=== PATIENT | male | born 1940 | race Caucasian/White ===

== ENCOUNTER 2017-02-01 11:19 | Inpatient (IN) ==
[2017-02-01 12:26] LABS: Hemoglobin 13.9 g/dL (12.9-16.9); Mean Corpuscular HGB Conc 32.3 g/dL (31.6-35.5); Mean Corpuscular Hemoglobin 30.8 pg (28.0-33.3); Mean Corpuscular Volume 95.1 fL (83.0-100.0); Mean Platelet Volume 10.8 fL (9.4-12.4); Platelet Count 164 K/mcL (140-400); Red Blood Count 4.52 M/mcL (4.19-5.50); Red Cell Distribution Width 14.6 % (11.5-14.5)
[2017-02-01 12:38] LABS: Alanine Aminotransferase 58 Units/L (0-55); Albumin 3.9 g/dL (3.5-5.0); Albumin/Globulin Ratio 1.1 (1.1-2.2); Alkaline Phosphatase 67 Units/L (38-126); Aspartate Amino Transferase 74 Units/L (5-34); BUN/Creatinine Ratio 13 (6-26); Bilirubin,Total 0.8 mg/dL (0.2-1.2); Blood Urea Nitrogen 15 mg/dL (8-26); Calcium 9.8 mg/dL (8.6-10.8); Carbon Dioxide 28 mEq/L (19-29); Chloride 102 mEq/L (98-109); Globulin 3.4 g/dL (2.4-3.5); Glucose 126 mg/dL (70-99); Osmolality,Calculated 284 (280-300); Potassium 4.1 mEq/L (3.5-4.5); Sodium 136 mEq/L (136-145); Total Protein 7.3 g/dL (6.0-8.3); eGFR For African Americans > 60 (> 60); eGFR For Non-African Americans > 60 (> 60)
[2017-02-01 16:12] LABS: Bilirubin,Urine Negative (Negative); Blood,Urine Negative (Negative); Clarity,Urine Clear (Clear); Color,Urine Yellow (Yellow); Glucose,Urine (UA) Normal (Normal); Ketones,Urine Negative (Negative); Leukocyte Esterase,Urine Negative (Negative); Nitrite,Urine Negative (Negative); PH,Urine 7.5 pH Units (5.0-8.0); Protein,Urine Negative (Neg-Trace); Specific Gravity,Urine > 1.030 (1.010-1.025); Urobilinogen,Urine Normal (Normal)
--- NOTE | 2017-02-01 19:17 | Emergency Department Note ---
Disposition Clinical Impression: Dizziness Disposition: Home, Self-Care Condition: Good General Adult HPI - General Chief complaint: ED Dizziness Stated complaint: Headache/Dizziness x3 days Time Seen by Provider: 02/01/17 11:26 Source: patient, family Limitations: no limitations Nursing Notes Reviewed: Yes Vital Signs Reviewed: Yes - History of Present Illness HPI Narrative: This is a 77-year-old male who presents with concern for dizziness. His symptoms started 3 days ago. His dizziness has been intermittent. He does have known left ear dysfunction is currently being evaluated by ear nose and throat. His vertigo on arrival was not reproducible. I cannot verify a benign etiology. He was given Antivert without improvement of his dizziness. Pain Scale: 0 - Related Data Home Medications Medication Instructions Recorded Confirmed Ascorbate Calcium [Vitamin C] 1,000 mg PO QPM 02/01/17 02/01/17 Ascorbate Calcium [Vitamin C] 2,000 mg PO QAM 02/01/17 02/01/17 Aspirin 650 mg PO QPM 02/01/17 02/01/17 Azelastine 0.1% Nasal [place] 1 spray NS QA02/01/17 02/01/17 [Astelin] Biotin 5,000 mcg PO QAM 02/01/17 02/01/17 Calcium Citrate/Vitamin D3 1 each PO QPM 02/01/17 02/01/17 [Calcium Citrate with D Tablet] Calcium Citrate/Vitamin D3 2 each PO QAM 02/01/17 02/01/17 [Calcium Citrate with D Tablet] Cholecalciferol (Vitamin D3) 10,000 unit PO QAM 02/01/17 02/01/17 [Vitamin D3] Garlic 1,000 mg PO QAM 02/01/17 02/01/17 Glucosam Sul Na/Chondr Cifuentes A Na 1 each PO QPM 02/01/17 02/01/17 [Glucosamine-Chondroitin Tablet] Glucosam Sul Na/Chondr Cifuentes A Na 2 each PO QAM 02/01/17 02/01/17 [Glucosamine-Chondroitin Tablet] Loratadine [Claritin] 10 mg PO QAM 02/01/17 02/01/17 Methotrexate [Otrexup] 15 mg PO QWEEK 02/01/17 02/01/17 Metoprolol XL (24 HR) Succ [Toprol 25 mg PO QPM 02/01/17 02/01/17 XL] Multivitamin [One Daily 1 each PO QAM 02/01/17 02/01/17 Multivitamin] Nitroglycerin [Nitrostat] 0.4 mg SL Q5M PRN 02/01/17 02/01/17 [place]-3/Dha/Epa/Fish Oil [Fish Oil 1,000 mg PO QPM 02/01/17 02/01/17 1,000 mg Softgel] [place]-3/Dha/Epa/Fish Oil [Fish Oil 2,000 mg PO QAM 02/01/17 02/01/17 1,000 mg Softgel] Pantoprazole Sodium [Protonix] 40 mg PO QAM 02/01/17 02/01/17 Potassium Gluconate [Potassium] 1,200 mg PO QAM 02/01/17 02/01/17 Vitamin A 8,000 unit PO QPM 02/01/17 02/01/17 Vitamin A 16,000 unit PO QAM 02/01/17 02/01/17 Vitamin B Complex 2 each PO QAM 02/01/17 02/01/17 Vitamin E (Dl,Tocopheryl Acet) 800 unit PO BID 02/01/17 02/01/17 [Vitamin E] Zinc Sulfate [Zinc-15] 66 mg PO QPM 02/01/17 02/01/17 metFORMIN [Glucophage] 1,000 mg PO QPM 02/01/17 02/01/17 metFORMIN [Glucophage] 500 mg PO QAM 02/01/17 02/01/17 Allergies Allergy/AdvReac Type Severity Reaction Status Date / Time diphenhydramine AdvReac Anxiety Verified 11/06/15 11:51 [From Benadryl] NSAIDS (Non-Steroidal AdvReac See Verified 11/06/15 11:51 Anti-Inflamma Comments All systems ED: reviewed and negative except as stated. Past Medical History - Past Medical History Medical history: Reports: hyperlipidemia, hypertension Surgical history: Reports: orthopedic, other Psychiatric history: Reports: no psych history - Social History Smoking Status: Unknown if ever smoked Physical Exam Reflexes were checked and were normal. Strength is 5/5, sensation was normal. - General Limitations: no limitations General appearance: alert, in no apparent distress - Head Head exam: atraumatic - Eye Eye exam: Present: normal appearance - ENT ENT exam: normal exam - Neck Neck exam: Present: normal inspection, full ROM - Chest Chest inspection: Present: normal inspection - Respiratory Respiratory exam: Present: normal lung sounds bilaterally - Cardiovascular Cardiovascular exam: Present: regular rate, normal rhythm - Abdominal Exam Abdominal exam: Present: soft, Non-Tender - Male exam: Present: normal inspection - Expanded Lower Extremity Exam Neurovascular/Tendon exam: Present: normal capillary refill. Absent: pulse deficit Gait: observed and normal, not tested/not observed - Back Exam Back exam: Present: normal inspection, full ROM - Neurological Exam Neurological exam: Present: alert, oriented X3, CN II-XII intact - Psychiatric Psychiatric exam: Present: normal affect - Skin Skin exam: Present: warm, dry Course Vital Signs Temperature 97.9 F 02/01/17 11:21 Pulse Rate 67 02/01/17 11:21 Respiratory Rate 18 02/01/17 11:21 Blood Pressure 188/80 02/01/17 11:21 O2 Sat by Pulse Oximetry 98 02/01/17 11:21 Temperature 97.9 F 02/01/17 11:21 Pulse Rate 53 02/01/17 16:23 Respiratory Rate 18 02/01/17 19:08 Blood Pressure 171/82 02/01/17 19:08 O2 Sat by Pulse Oximetry 97 02/01/17 16:23 Oxygen Delivery Oxygen Delivery Room Air Medical Decision Making - [facility] Narrative Medical decision making narrative: A CT scan of his head and neck shows that there is a saccular aneurysm in the car did artery. It is small in nature. I discussed the case with Dr. Boyle the on-call vascular surgeon. He will plan to evaluate the patient as an inpatient. He will also need to be admitted for posterior circulation infarct rule out. He should be given an aspirin. He should be admitted to the hospital for further evaluation. EKG shows no acute findings. There are no identified metabolic derangements. The patient will be admitted in stable condition. - Medical Records Medical records reviewed: Yes I reviewed the patient's medical records. - Lab Data Lab results reviewed: Yes I reviewed the patient's lab results. Result diagrams: 02/01/17 12:12 02/01/17 12:12 Lab Results 02/01/17 02/01/17 02/01/17 Range/Units 12:12 12:12 12:13 WBC 5.3 (4.3-11.1) K/mcL RBC 4.52 (4.19-5.50) M/mcL Hgb 13.9 (12.9-16.9) g/dL Hct 43.0 (37.5-50.1) % MCV 95.1 (83.0-100.0) fL MCH 30.8 (28.0-33.3) pg MCHC 32.3 (31.6-35.5) g/dL RDW 14.6 H (11.5-14.5) % Plt Count 164 (140-400) K/mcL MPV 10.8 (9.4-12.4) fL ESR (0-10) mm/hr Sodium 136 (136-145) mEq/L Potassium 4.1 (3.5-4.5) mEq/L Chloride 102 (98-109) mEq/L Carbon Dioxide 28 (19-29) mEq/L BUN 15 (8-26) mg/dL Creatinine 1.12 (0.72-1.25) mg/dL Est GFR ( Amer) > 60 (> 60) Est GFR (Non-Af Amer) > 60 (> 60) BUN/Creatinine Ratio 13 (6-26) Glucose 126 H (70-99) mg/dL Calculated Osmolality 284 (280-300) Calcium 9.8 (8.6-10.8) mg/dL Total Bilirubin 0.8 (0.2-1.2) mg/dL AST 74 H (5-34) Units/L ALT 58 H (0-55) Units/L Alkaline Phosphatase 67 (38-126) Units/L Troponin I 0.02 (0-0.03) ng/mL Serum Total Protein 7.3 (6.0-8.3) g/dL Albumin 3.9 (3.5-5.0) g/dL Globulin 3.4 (2.4-3.5) g/dL Albumin/Globulin Ratio 1.1 (1.1-2.2) Urine Color (Yellow) Urine Clarity (Clear) Urine pH (5.0-8.0) pH Units Ur Specific [place] (1.010-1.025) Urine Protein (Neg-Trace) mg/dL Urine Glucose (UA) (Normal) mg/dL Urine Ketones (Negative) mg/dL Urine Blood (Negative) Urine Nitrite (Negative) Urine Bilirubin (Negative) Urine Urobilinogen (Normal) mg/dL Ur Leukocyte Esterase (Negative) Ur Culture Indicated? (NO) 02/01/17 02/01/17 Range/Units 12:14 15:59 WBC (4.3-11.1) K/mcL RBC (4.19-5.50) M/mcL Hgb (12.9-16.9) g/dL Hct (37.5-50.1) % MCV (83.0-100.0) fL MCH (28.0-33.3) pg MCHC (31.6-35.5) g/dL RDW (11.5-14.5) % Plt Count (140-400) K/mcL MPV (9.4-12.4) fL ESR 17 H (0-10) mm/hr Sodium (136-145) mEq/L Potassium (3.5-4.5) mEq/L Chloride (98-109) mEq/L Carbon Dioxide (19-29) mEq/L BUN (8-26) mg/dL Creatinine (0.72-1.25) mg/dL Est GFR ( Amer) (> 60) Est GFR (Non-Af Amer) (> 60) BUN/Creatinine Ratio (6-26) Glucose (70-99) mg/dL Calculated Osmolality (280-300) Calcium (8.6-10.8) mg/dL Total Bilirubin (0.2-1.2) mg/dL AST (5-34) Units/L ALT (0-55) Units/L Alkaline Phosphatase (38-126) Units/L Troponin I (0-0.03) ng/mL Serum Total Protein (6.0-8.3) g/dL Albumin (3.5-5.0) g/dL Globulin (2.4-3.5) g/dL Albumin/Globulin Ratio (1.1-2.2) Urine Color Yellow (Yellow) Urine Clarity Clear (Clear) Urine pH 7.5 (5.0-8.0) pH Units Ur Specific [place] > 1.030 H (1.010-1.025) Urine Protein Negative (Neg-Trace) mg/dL Urine Glucose (UA) Normal (Normal) mg/dL Urine Ketones Negative (Negative) mg/dL Urine Blood Negative (Negative) Urine Nitrite Negative (Negative) Urine Bilirubin Negative (Negative) Urine Urobilinogen Normal (Normal) mg/dL Ur Leukocyte Esterase Negative (Negative) Ur Culture Indicated? NO (NO)
[2017-02-01] MEDS ORDERED: Acetaminophen 325 MG TABLET PO PRN (19:36)
[2017-02-01] MEDS ORDERED: MOM Conc 10 ML UD.LIQ PO PRN (19:36)
[2017-02-01] MEDS ORDERED: Naloxone 0.4 MG/ML INJ IVP PRN (19:36)
[2017-02-01] MEDS ORDERED: *HR* HYDROcodone/Acet 5/325 mg TABLET PO PRN (19:36)
[2017-02-01] MEDS ORDERED: Mag Hydrox/Al Hydrox/Simeth 30 ML UDC PO PRN (19:36)
[2017-02-01] MEDS ORDERED: Pantoprazole 40 MG VIAL IVP SCH (19:45)
[2017-02-01] MEDS ORDERED: 0.9 % Sodium Chloride 1,000 ML IVC SCH (19:45)
--- NOTE | 2017-02-01 19:59 | Internal Med History&Physical ---
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 CTA of the head and neck is already done an echocardiogram has been done not too long ago and it showed an ejection fraction of 55% with the LV systolic and diastolic dysfunction. It was followed by perfusion stress test which showed inferior basal fixed defect. Based on these findings patient is a candidate of being on low-dose aspirin and Lopressor. (6) Cerebellar stroke, acute Current visit: Yes Status: Acute MRI showed left cerebellar stroke. CTA showed left carotid 3 mm saccular aneurysm. Patient has history of A. fib in the past but now he is in sinus rhythm. He is currently on Plavix and aspirin. Echocardiogram ordered but if necessary LUIS will be planned. An other possibility is to arrange a Holter monitor to see if he gets proximal itchy fibrillation. Internal Medicine - H&P: HPI Chief complaint: Headache and dizziness for 3 days Admitted From: Emergency Dept Plans for Post Hospital Care: Home History of present illness: Mr. Marquez is a 77 year old male who has chronic vertigo and dizziness problem. Patient has past medical history significant for diabetes hypertension dyslipidemia and coronary artery disease with PCI as per previous record. He has been experiencing intense postural dizziness for last 3 days and therefore he decided to come to ER. 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 ER physician consulted Dr. Boyle who has recommended to admit patient as inpatient for further evaluation while he will be consulted. MRI of the brain showed left cerebellar acute stroke/ischemia. We consulted Dr. Nuno and he is recommended to keep patient on aspirin and Plavix and do a fresh echo. Patient indicated that he had atrial fibrillation in the past but ever since he is on metoprolol that has resolved. Apparently patient had detailed workup And evaluation for vertigo as outpatient. In the fall of 2015 he had MRI of the brain and later echocardiogram of his heart. Except for left-sided mastoiditis MRI of the brain was unremarkable. Echocardiogram showed ejection fraction of 55% with surprisingly LV systolic dysfunction as well as moderate LV diastolic dysfunction without any significant valvular abnormality. Nuclear stress test was also done not too long ago which showed an estimated EF of 47% with a fixed inferobasal perfusion defect. He has also been evaluated by ENT for chronic vertigo. An incidental finding of multiple thyroid nodules was noted on CT head and neck. I checked previous record and he had thyroid ultrasound and biopsy as outpatient by his family doctor. It was noted that patient is on methotrexate but does not take folic acid though he does take multiple vitamin. Deficiency of folic acid can cause peripheral neuropathy. Patient is planned to be admitted for an observation for his symptoms. While he will remain on telemetry I will check a series of cardiac enzymes though likelihood of ischemic etiology is less but nevertheless he has history of coronary artery disease with PCI in the past as per cardiology records. I will also order fasting lipid profile besides CBC CMP to be repeated in the morning. As noted above vascular consult neurology consult has been requested. Patient 's orthostatic blood pressure will be checked by nursing. Plan discussed in detail with patient and his available family, their questions were answered and they showed good understanding integument with our plan. Past Med Surg Social Fam HX - Past Medical History Medical history: hyperlipidemia, hypertension Psychiatric history: no psych history - Past Surgical History Surgical History: orthopedic, other - Social History Smoking Status: Unknown if ever smoked Internal Medicine - H&P: Meds Ascorbate Calcium [Vitamin C] 1,000 mg PO QPM 02/01/17 [History] Ascorbate Calcium [Vitamin C] 2,000 mg PO QAM 02/01/17 [History] Aspirin 650 mg PO QPM 02/01/17 [History] Azelastine 0.1% Nasal [place] [Astelin] 1 spray NS QAM 02/01/17 [History] Biotin 5,000 mcg PO QAM 02/01/17 [History] Calcium Citrate/Vitamin D3 [Calcium Citrate with D Tablet] 1 each PO QPM [History] Calcium Citrate/Vitamin D3 [Calcium Citrate with D Tablet] 2 each PO QAM [History] Cholecalciferol (Vitamin D3) [Vitamin D3] 10,000 unit PO QAM 02/01/17 [History] Garlic 1,000 mg PO QAM 02/01/17 [History] Glucosam Sul Na/Chondr Cifuentes A Na [Glucosamine-Chondroitin Tablet] 1 each PO QPM [History] Glucosam Sul Na/Chondr [place] A Na [Glucosamine-Chondroitin Tablet] 2 each PO QAM [History] Loratadine [Claritin] 10 mg PO QAM 02/01/17 [History] Methotrexate [Otrexup] 15 mg PO QWEEK 02/01/17 [History] Metoprolol XL (24 HR) Succ [Toprol XL] 25 mg PO QPM 02/01/17 [History] Multivitamin [One Daily Multivitamin] 1 each PO QAM 02/01/17 [History] Nitroglycerin [Nitrostat] 0.4 mg SL Q5M PRN 02/01/17 [History] [place]-3/Dha/Epa/Fish Oil [Fish Oil 1,000 mg Softgel] 1,000 mg PO QPM 02/01/17 [ History] [place]-3/Dha/Epa/Fish Oil [Fish Oil 1,000 mg Softgel] 2,000 mg PO QAM 02/01/17 [ History] Pantoprazole Sodium [Protonix] 40 mg PO QAM 02/01/17 [History] Potassium Gluconate [Potassium] 1,200 mg PO QAM 02/01/17 [History] Vitamin A 8,000 unit PO QPM 02/01/17 [History] Vitamin A 16,000 unit PO QAM 02/01/17 [History] Vitamin B Complex 2 each PO QAM 02/01/17 [History] Vitamin E (Dl,Tocopheryl Acet) [Vitamin E] 800 unit PO BID 02/01/17 [History] Zinc Sulfate [Zinc-15] 66 mg PO QPM 02/01/17 [History] metFORMIN [Glucophage] 1,000 mg PO QPM 02/01/17 [History] metFORMIN [Glucophage] 500 mg PO QAM 02/01/17 [History] Allergies diphenhydramine [From Benadryl] Adverse Reaction (Verified 11/06/15 11:51) Anxiety NSAIDS (Non-Steroidal Anti-Inflamma Adverse Reaction (Verified 11/06/15 11:51) See Comments All Systems PM: A 10-system review of systems was performed and is negative for pertinent findings except as documented above in the HPI. - Constitutional Constitutional: no chills, no fever(s), no night sweats - EENT Eyes: no change in vision, no discharge, no pain, no photophobia Ears: no ear discharge, no ear pain, no tinnitus Nose, mouth and throat: no dysphagia, no nasal discharge, no neck pain, no sore throat - Cardiovascular Cardiovascular ROS IM: no chest pain, no diaphoresis, no dyspnea, no lightheadedness, no palpitations, no syncope - Respiratory Respiratory: no cough, no dyspnea, no wheezing, no excessive phlegm production - Gastrointestinal Gastrointestinal: no abdominal pain, no diarrhea, no hematemesis, no hematochezia, no melena, no nausea, no vomiting - Musculoskeletal Musculoskeletal ROS IM: no numbness, no tingling - Integumentary Integumentary IM: no rash, no unusual bruising - Neurological Neurological ROS: no confusion, no convulsions, no focal weakness, no numbness, no tingling, no tremor(s) - Hematologic/Lymphatic Hematologic/Lymphatic: no easy bruising - Constitutional Vitals: Temp Pulse Resp BP Pulse Ox 97.9 F 53 18 171/82 97 02/01/17 11:21 02/01/17 16:23 02/01/17 19:08 02/01/17 19:08 02/01/17 16:23 - Head Head exam: Present: atraumatic, normocephalic - Eye Eye exam: Present: PERRL, conjuntiva pink, sclera anicteric Pupils: Present: PERRL - Neck Neck exam general surgery: Present: supple, trachea midline. Absent: lymphadenopathy - Respiratory Respiratory exam: Present: CTAB. Absent: accessory muscle use, rales, rhonchi, wheezes - Cardiovascular Cardiovascular exam: Present: RRR, +S1, +S2. Absent: diastolic murmur, gallop, rubs, systolic murmur - GI/Abdominal GI/Abdominal exam: Present: normal bowel sounds, soft, no peritoneal signs. Absent: distended, tenderness - Extremities Exam Extremities exam: Present: warm, radial pulses palpable and symetrical. Absent : calf tenderness, cyanotic, pedal edema - Neurological Exam Neurological exam: Present: CN II-XII intact, oriented X3, no focal deficits. Absent: pronater drift, facial droop, speech deficit Additional comments: Detail neurological examination performed. No distal motor weakness noted DTRs symmetrical plantars downward bilaterally. Romberg's negative. No dizziness or ataxia noted no pronator drift noted nystagmus noticed - Skin Skin exam: Present: dry, intact Internal Med - H&P Results - Labs CBC & Chem 7: 02/01/17 12:12 02/01/17 12:12
[2017-02-01] MEDS ORDERED: Nitroglycerin 0.4 MG TAB.SUBL SL PRN (20:44)
[2017-02-01] MEDS ORDERED: *HR* Methotrexate 2.5 MG TABLET PO SCH (20:45)
[2017-02-01] MEDS ORDERED: *HR* Dextrose 50 % in Water (Syg) 50 ML SYRINGE IVP PRN (20:53)
[2017-02-01] MEDS ORDERED: Dextrose Gel 15 GM PO PRN ×2 (20:53)
[2017-02-01] MEDS ORDERED: D5% in Water 1,000 ML IVC PRN (20:53)
[2017-02-01] MEDS: Ondansetron 4 MG/2 ML VIAL IVP SCH (21:09)
[2017-02-01] MEDS: Folic Acid 1 MG TABLET PO SCH (21:10)
[2017-02-01] MEDS: Insulin LISPRO 300 UNITS/3 ML VIAL SQ SCH ×2 (22:01→22:02)
[2017-02-02 02:53] LABS: Alanine Aminotransferase 64 Units/L (0-55); Albumin 3.5 g/dL (3.5-5.0); Albumin/Globulin Ratio 1.2 (1.1-2.2); Alkaline Phosphatase 61 Units/L (38-126); Aspartate Amino Transferase 77 Units/L (5-34); BUN/Creatinine Ratio 12 (6-26); Bilirubin,Total 0.8 mg/dL (0.2-1.2); Blood Urea Nitrogen 13 mg/dL (8-26); Carbon Dioxide 26 mEq/L (19-29); Chloride 104 mEq/L (98-109); Chol/HDL Ratio 4.7 (0-4.9); Glucose 141 mg/dL (70-99); Osmolality,Calculated 288 (280-300); Potassium 3.7 mEq/L (3.5-4.5); Sodium 138 mEq/L (136-145); Total Protein 6.5 g/dL (6.0-8.3); eGFR For African Americans > 60 (> 60); eGFR For Non-African Americans > 60 (> 60)
[2017-02-02 02:54] LABS: Basophils % 0.5 %; Eosinophils # 0.2 K/mcL (0.0-0.6); Eosinophils % 3.1 %; Hematocrit 42.3 % (37.5-50.1); Hemoglobin 13.8 g/dL (12.9-16.9); Immature Granulocytes % 0.2 % (0-4); Lymphocytes % 36.4 %; Mean Corpuscular HGB Conc 32.6 g/dL (31.6-35.5); Mean Corpuscular Hemoglobin 31.2 pg (28.0-33.3); Mean Corpuscular Volume 95.5 fL (83.0-100.0); Monocytes # 0.6 K/mcL (0.0-1.3); Monocytes % 11.2 %; Neutrophils # 2.7 K/mcL (1.6-8.9); Platelet Count 150 K/mcL (140-400); Red Blood Count 4.43 M/mcL (4.19-5.50); Red Cell Distribution Width 14.8 % (11.5-14.5); Segmented Neutrophils % 48.6 %
[2017-02-02 03:15] LABS: Thyroid Stimulating Hormone 4.705 mcIU/mL (0.350-4.840)
[2017-02-02] MEDS: Ondansetron 4 MG/2 ML VIAL IVP SCH ×2 (03:31→04:57)
[2017-02-02] MEDS ORDERED: *HR* Enoxaparin 40 MG/0.4 ML SYRINGE SQ SCH (06:00)
--- NOTE | 2017-02-02 08:20 | Vascular/Endovasc Consult Note ---
Date of Encounter: 02/02/17 Time of Encounter: 07:00 Assessment and Plan (1) Saccular aneurysm Current Visit: Yes Status: Acute The proximal left internal carotid artery has a small 3 mm saccular aneurysm. This can be seen on at least one view in the carotid duplex evaluation. I would recommend anticoagulation with aspirin and Plavix and follow up carotid duplex in 6 weeks with follow-up in the office. If the aneurysm is still present resection may be indicated - History of Present Illness Consult date: 02/02/17 Consult reason: Abnormal CTA left internal carotid Chief complaint: Vertigo History of present illness: Mr. Marquez is a 77 year old male Who presented with a 3 day history of dizziness and vertigo. The patient underwent a CAT scan of the head was essentially negative however the CTA of the neck demonstrated a 3 mm saccular aneurysm of the proximal internal carotid artery on the left side. A follow-up duplex of the neck was evaluated and I personally reviewed the duplex evaluation. I believe that I can see flow in the saccular aneurysm on at least one image. This is a very small defect. It is noted that the MRI of the brain demonstrated cerebellar infarcts that appear to be acute in the PICA distribution. In the clinical setting of acute stroke anticoagulation with aspirin and Plavix is a reasonable approach. Further evaluation with follow-up carotid duplex is indicated. The saccular aneurysm main need to be resected and/or repaired in the future. Past Med Surg Social Fam HX - Past Medical History Medical history: hyperlipidemia, hypertension Psychiatric history: no psych history - Past Surgical History Surgical History: orthopedic, other - Social History Smoking Status: Unknown if ever smoked Smokeless Tobacco Status: Yes Alcohol use: none Drug use: none Medications and Allergies Ascorbate Calcium [Vitamin C] 1,000 mg PO QPM 02/01/17 [History] Ascorbate Calcium [Vitamin C] 2,000 mg PO QAM 02/01/17 [History] Aspirin 650 mg PO QPM 02/01/17 [History] Azelastine 0.1% Nasal [place] [Astelin] 1 spray NS QAM 02/01/17 [History] Biotin 5,000 mcg PO QAM 02/01/17 [History] Calcium Citrate/Vitamin D3 [Calcium Citrate with D Tablet] 1 each PO QPM [History] Calcium Citrate/Vitamin D3 [Calcium Citrate with D Tablet] 2 each PO QAM [History] Cholecalciferol (Vitamin D3) [Vitamin D3] 10,000 unit PO QAM 02/01/17 [History] Garlic 1,000 mg PO QAM 02/01/17 [History] Glucosam Sul Na/Chondr Cifuentes A Na [Glucosamine-Chondroitin Tablet] 1 each PO QPM [History] Glucos[place] Sul Na/Chondr [place] A Na [Glucosamine-Chondroitin Tablet] 2 each PO QAM [History] Loratadine [Claritin] 10 mg PO QAM 02/01/17 [History] Methotrexate [Otrexup] 15 mg PO QWEEK 02/01/17 [History] Metoprolol XL (24 HR) Succ [Toprol XL] 25 mg PO QPM 02/01/17 [History] Multivitamin [One Daily Multivitamin] 1 each PO QAM 02/01/17 [History] Nitroglycerin [Nitrostat] 0.4 mg SL Q5M PRN 02/01/17 [History] [place]-3/Dha/Epa/Fish Oil [Fish Oil 1,000 mg Softgel] 1,000 mg PO QPM 02/01/17 [ History] [place]-3/Dha/Epa/Fish Oil [Fish Oil 1,000 mg Softgel] 2,000 mg PO QAM 02/01/17 [ History] Pantoprazole Sodium [Protonix] 40 mg PO QAM 02/01/17 [History] Potassium Gluconate [Potassium] 1,200 mg PO QAM 02/01/17 [History] Vitamin A 8,000 unit PO QPM 02/01/17 [History] Vitamin A 16,000 unit PO QAM 02/01/17 [History] Vitamin B Complex 2 each PO QAM 02/01/17 [History] Vitamin E (Dl,Tocopheryl Acet) [Vitamin E] 800 unit PO BID 02/01/17 [History] Zinc Sulfate [Zinc-15] 66 mg PO QPM 02/01/17 [History] metFORMIN [Glucophage] 1,000 mg PO QPM 02/01/17 [History] metFORMIN [Glucophage] 500 mg PO QAM 02/01/17 [History] Allergies diphenhydramine [From Benadryl] Adverse Reaction (Verified 11/06/15 11:51) Anxiety NSAIDS (Non-Steroidal Anti-Inflamma Adverse Reaction (Verified 11/06/15 11:51) See Comments All Systems Review: A 10-system review of systems was performed and is negative for pertinent findings except as documented above in the HPI. Exam Vital Signs, Last 4 Hours Temp Pulse Resp BP Pulse Ox 02/02/17 06:31 98.7 F 68 18 171/83 94 02/02/17 05:12 97.3 F L 58 161/78 02/02/17 04:37 97.3 F L 58 16 161/78 96 General: Present: No Apparent Distress HEENT: Present: Trachea midline, Pupils equal Neck: Present: Other (No carotid bruits noted) Cardiac: Present: Reg Rate and Rhythm, Normal S1 and S2, No Murmur Lungs: Present: Normal Breath Sounds, No Wheeze, Rales, Rhonchi Neuro: Present: Alert and responsive, No focal deficits noted Abdomen: Present: Soft, Non-tender Vascular: Present: Normal capillary refill, Pulse, normal Consult Discharge Plan - Plan Referrals: Josh Randolph DO [Primary Care Provider] -
[2017-02-02] MEDS ORDERED: POTASSIUM GLUCONATE PO SCH (09:00)
[2017-02-02] MEDS ORDERED: VITAMIN A PO SCH (09:00)
[2017-02-02] MEDS ORDERED: CHONDR SU A NA PO SCH ×2 (09:00→18:00)
[2017-02-02] MEDS ORDERED: [UNRECOGNIZED DRUG - OTHER] PO SCH (09:00)
[2017-02-02] MEDS ORDERED: *HR* Metformin 500 MG TABLET PO SCH ×2 (09:00→18:00)
[2017-02-02] MEDS ORDERED: (Biotin [Biotin] 5,000 MCG) PO SCH (09:00)
[2017-02-02] MEDS ORDERED: CALCIUM CITRATE PO SCH (09:00)
[2017-02-02] MEDS ORDERED: Azelastine 0.1% Nasal Spray 30 ML BOTTLE NS SCH (09:00)
[2017-02-02] MEDS ORDERED: VITAMIN D3 PO SCH (09:00)
[2017-02-02] MEDS ORDERED: [UNRECOGNIZED DRUG - OTHER] PO SCH ×2 (09:00→18:00)
[2017-02-02] MEDS ORDERED: (Garlic [Garlic] 1,000 MG) PO SCH (09:00)
[2017-02-02] MEDS ORDERED: Ondansetron 4 MG/2 ML VIAL IVP PRN (09:19)
[2017-02-02] MEDS: Loratadine 10 MG TABLET PO SCH (09:53)
[2017-02-02] MEDS: Multivit/Ca/Min/Fe/FA 1 TAB TABLET PO SCH (09:53)
[2017-02-02] MEDS: Folic Acid 1 MG TABLET PO SCH (09:54)
[2017-02-02] MEDS: Cholecalciferol (D-3) 1,000 UNIT TABLET PO SCH (09:54)
[2017-02-02] MEDS: Aspirin Enteric Coated 81 MG Tablet PO SCH (09:54)
[2017-02-02] MEDS: Vitamin B Complex/Vit C/Vit E 1 EACH TABLET PO SCH (09:54)
[2017-02-02] MEDS: Ascorbic Acid 500 MG TABLET PO SCH (09:54)
[2017-02-02] MEDS: Insulin LISPRO 300 UNITS/3 ML VIAL SQ SCH ×4 (09:55→22:06)
--- NOTE | 2017-02-02 12:44 | Neurology - Consult Note ---
Date of Encounter: 02/02/17 Time of Encounter: 12:39 Assessment and Plan (1) Cerebellar stroke, acute Current Visit: Yes Status: Acute Involving the left cerebellar hermisphere, could be embolic or thromboembolic but CTA of head did not identify any evidence of vertebral basilar artery stenosis or occlusion. He does have history of palpitation in the past and history of irregular hearbeat but no definitive history of atrial fibrillation. next step would be to look for source of emboli therefore i would recommend LUIS for further evaluation. If LUIS returns negative he would also benefit from lands resource manager rhythm monitoring, such as loop recording. Continue Aspirin 81mg daily and plavix 75mg daily. Continue statin therapy. PT/OT. (2) Cerebral aneurysm without rupture Current Visit: Yes Status: Acute incidental finding of left ICA 3mm saccular aneurysm, currently asymptomatic. Patient is to follow up with vascular surgery Dr. Dinero. Appreciate consultation History of Present Illness Chief complaint: Dizziness for 3 days HPI: Mr. Marquez is a 77 year old male with PMH significant for HTN and hyperlipidemia , history of palpitation who developed acute onset of dizziness for three days before he went to ER for further evaluation. no significant nausea or vomiting, no hearing difficulty or tinnitus. Dizziness not very severe but fluctuate in intensity. MRI of brain showed acute cerebellar infarct at the left hemisphere in the PICA territory. CTA of neck and head showed 3mm left ICA saccular aneurysm, no evidence of vertebral or basilar artery stenosis. Patient was taking Aspirin 325mg daily. now added plavix 75mg daily and continued him on Aspirin 81mg daily. Patient is currently asymptomatic. Past Med Surg Social Fam HX - Past Medical History Medical history: hyperlipidemia, hypertension Psychiatric history: no psych history - Past Surgical History Surgical History: orthopedic, other - Social History Smoking Status: Unknown if ever smoked Smokeless Tobacco Status: Yes Alcohol use: none Drug use: none Medications and Allergies Ascorbate Calcium [Vitamin C] 1,000 mg PO QPM 02/01/17 [History] Ascorbate Calcium [Vitamin C] 2,000 mg PO QAM 02/01/17 [History] Aspirin 650 mg PO QPM 02/01/17 [History] Azelastine 0.1% Nasal [place] [Astelin] 1 spray NS QAM 02/01/17 [History] Biotin 5,000 mcg PO QAM 02/01/17 [History] Calcium Citrate/Vitamin D3 [Calcium Citrate with D Tablet] 1 each PO QPM [History] Calcium Citrate/Vitamin D3 [Calcium Citrate with D Tablet] 2 each PO QAM [History] Cholecalciferol (Vitamin D3) [Vitamin D3] 10,000 unit PO QAM 02/01/17 [History] Garlic 1,000 mg PO QAM 02/01/17 [History] Glucosam Sul Na/Chondr Cifuentes A Na [Glucosamine-Chondroitin Tablet] 1 each PO QPM [History] Glucosam Sul Na/Chondr [place] A Na [Glucosamine-Chondroitin Tablet] 2 each PO QAM [History] Loratadine [Claritin] 10 mg PO QAM 02/01/17 [History] Methotrexate [Otrexup] 15 mg PO QWEEK 02/01/17 [History] Metoprolol XL (24 HR) Succ [Toprol XL] 25 mg PO QPM 02/01/17 [History] Multivitamin [One Daily Multivitamin] 1 each PO QAM 02/01/17 [History] Nitroglycerin [Nitrostat] 0.4 mg SL Q5M PRN 02/01/17 [History] [place]-3/Dha/Epa/Fish Oil [Fish Oil 1,000 mg Softgel] 1,000 mg PO QPM 02/01/17 [ History] [place]-3/Dha/Epa/Fish Oil [Fish Oil 1,000 mg Softgel] 2,000 mg PO QAM 02/01/17 [ History] Pantoprazole Sodium [Protonix] 40 mg PO QAM 02/01/17 [History] Potassium Gluconate [Potassium] 1,200 mg PO QAM 02/01/17 [History] Vitamin A 8,000 unit PO QPM 02/01/17 [History] Vitamin A 16,000 unit PO QAM 02/01/17 [History] Vitamin B Complex 2 each PO QAM 02/01/17 [History] Vitamin E (Dl,Tocopheryl Acet) [Vitamin E] 800 unit PO BID 02/01/17 [History] Zinc Sulfate [Zinc-15] 66 mg PO QPM 02/01/17 [History] metFORMIN [Glucophage] 1,000 mg PO QPM 02/01/17 [History] metFORMIN [Glucophage] 500 mg PO QAM 02/01/17 [History] Allergies diphenhydramine [From Benadryl] Adverse Reaction (Verified 11/06/15 11:51) Anxiety NSAIDS (Non-Steroidal Anti-Inflamma Adverse Reaction (Verified 11/06/15 11:51) See Comments All Systems: A 10-system review of systems was performed and is negative for pertinent findings except as documented above in the HPI. Physical Examination - Vital Signs Vital Signs: Initial Vital Signs Temp Pulse Resp BP Pulse Ox 97.9 F 67 18 188/80 98 02/01/17 11:21 02/01/17 11:21 02/01/17 11:21 02/01/17 11:21 02/01/17 11:21 - Constitutional General appearance: comfortable - Neurologic Detailed motor examination: full strength in all major muscle groups Motor examination - right side: 5/5: deltoids, biceps, triceps, wrist flexion, wrist extension, booth manager, hip flexors, tibialis Anterior, quadriceps, toe extension (EHL), plantarflexion Motor examination - left side: 5/5: deltoids, biceps, triceps, wrist flexion, wrist extension, hip flexors, booth manager, quadriceps, tibialis Anterior, toe extension (EHL), plantarflexion Detailed sensory examination: intact Posture: other (None) Reflex and gait examination: intact Reflexes: Biceps: 2+, Triceps: 2+, Brachioradialis: 2+, Patella: 2+, Achilles: 2 + Mental Status Examination: awake, alert, oriented to person, oriented to place, oriented to time, follows commands appropriately, answers questions appropriately, no agnosia, no aphasia, no aproxia Cranial nerve examination: PERRL, EOMI, visual kathleen intact, corneal reflexes brisk symmetrically, sensory to face intact, mastication intact, no facial asymmetry is present, no dysarthria, hearing is intact symmetrically, soft palate elevates bilaterally upon phonation, gag reflex intact, flexes SCM and trapezius muscles symmetrically with full power, tongue protrudes midline, no atrophy or facial fasiculations present Cerebellar examination: no dysmetria, performs finger to nose and heel to kingsley symmetrically without ataxia, no gait ataxia, no truncal ataxia, no difficulty with rapid alternating movements Results - Laboratory Findings CBC and BMP: 02/02/17 01:55 02/02/17 01:55 Abnormal lab findings: Abnormal lab results RDW 14.8 % (11.5-14.5) H 02/02/17 01:55 ESR 17 mm/hr (0-10) H 02/01/17 12:14 Glucose 141 mg/dL (70-99) H 02/02/17 01:55 AST 77 Units/L (5-34) H 02/02/17 01:55 ALT 64 Units/L (0-55) H 02/02/17 01:55 Triglycerides 200 mg/dL (< 150) H 02/02/17 01:55 VLDL Cholesterol, Calc 40 mg/dL (< 31) H 02/02/17 01:55 HDL Cholesterol 36 mg/dL (40-59) L 02/02/17 01:55 Ur Specific [place] > 1.030 (1.010-1.025) H 02/01/17 15:59 Consult Discharge Plan - Plan Referrals: Josh Randolph DO [Primary Care Provider] - 02/08/17 2:00 pm
--- NOTE | 2017-02-02 15:42 | Internal Med Progress Note ---
Date of Encounter: 02/02/17 Time of Encounter: 14:30 - Assessment and plan (1) CVA (cerebral vascular accident) Current Visit: Yes Status: Acute Assessment and plan: Patient presents with acute onset vertigo 3 days ago. MRI reveals acute ischemic left cerebellar infarct in the left posterior inferior cerebellar artery territory. Patient has been evaluated by speech therapy and physical therapy and has been cleared. Patient be placed in patient status. Expected to be in the hospital for at least 2 midnights. High risk due to risk of recurrent stroke and lethal arrhythmias. Neurology has evaluated the patient and has recommended a transesophageal echocardiogram for evaluation of possible foci that can be causing emboli. Expected discharge disposition is to home. We will obtain transesophageal echocardiogram. Nothing by mouth past midnight tonight. Patient is on aspirin and statin. Continue Plavix. 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 The recommend anti-regulation with aspirin and Plavix and outpatient follow-up in 6 weeks. (3) Hypertension Current Visit: Yes Status: Acute Assessment and plan: Blood pressure elevated. We will allow permissive hypertension due to acute stroke. Continue to monitor blood pressure and if it remains elevated tomorrow, will consider blood pressure medications. Qualifiers: Hypertension type: essential hypertension Qualified Code(s): I10 - Essential (primary) hypertension - Subjective Interval history: Patient seen and evaluated today. He reports that his dizziness is better. He states that this is been going on for the past 3 days. He describes the dizziness as a sensation of room moving about when he stands up. He denies any nausea associated with his vertigo symptoms. He denies any chest pain, palpitations, shortness of breath, cough or wheezing. Past medical, surgical, family and social history reviewed from admission document dated 02/01/2017. No changes. 10 systems have been reviewed and are negative except as mentioned in the history of present illness. - Constitutional Vitals: Temp Pulse Resp BP Pulse Ox 97.6 F 69 18 182/79 93 02/02/17 10:39 02/02/17 10:39 02/02/17 10:39 02/02/17 10:39 02/02/17 10:39 Exam: Gen.: Lying in bed. No acute distress. Chest: Clear to auscultation bilaterally. No adventitious sounds present. CVS: First and second heart sounds present. No murmurs, rubs or gallops. Abdomen: Soft, nontender, nondistended. Bowel sounds present. No hepatosplenomegaly. BENDER HAND: Cranial nerves II through XII grossly intact. Power 5/5 in all 4 extremities. No sensory abnormalities. Eyes: Pupils equal, round and reactive to light. Extraocular muscles intact. ENT: Moist mucous membranes. No oropharyngeal erythema or discharge. Skin: No decubitus ulcers appreciated. Psychiatric: Alert, awake and oriented to time, place and person. Lymphatic system: No lymphadenopathy appreciated Internal Medicine: Result - Labs CBC & Chem 7: 02/02/17 01:55 02/02/17 01:55 Labs: Short CBC 02/02/17 Range/Units 01:55 WBC 5.5 (4.3-11.1) K/mcL Hgb 13.8 (12.9-16.9) g/dL Hct 42.3 (37.5-50.1) % Plt Count 150 (140-400) K/mcL Neutrophils # 2.7 (1.6-8.9) K/mcL BMP 02/02/17 01:55 Sodium 138 Potassium 3.7 Chloride 104 Carbon Dioxide 26 BUN 13 Creatinine 1.08 Glucose 141 H Calcium 9.0 Cardiac Enzymes 02/01/17 02/02/17 02/02/17 Range/Units 20:18 01:55 08:28 Troponin I 0.03 0.03 0.02 (0-0.03) ng/mL Liver Function 02/02/17 Range/Units 01:55 Total Bilirubin 0.8 (0.2-1.2) mg/dL AST 77 H (5-34) Units/L ALT 64 H (0-55) Units/L Alkaline Phosphatase 61 (38-126) Units/L Albumin 3.5 (3.5-5.0) g/dL - Impressions Impressions Brain MRI 02/01/17 20:43 IMPRESSION: 1. Acute ischemic left cerebellar infarcts in the left posterior inferior cerebellar artery territory. 2. No mass effect or intracranial hemorrhage. 3. Mild chronic white matter microvascular ischemic changes. D/ / Matty Lombardi MD / Matty Lombardi MD Interpreting Provider: Matty Lombardi MD Echocardiogram performed today reveals preserved ejection fraction without any wall motion abnormalities or diastolic dysfunction. Consult Discharge Plan - Plan Referrals: Josh Randolph DO [Primary Care Provider] - 02/08/17 2:00 pm
--- NOTE | 2017-02-02 16:11 | Electrocardiograph Report ---
[place] [id number] Test Date: 2017-02-01 Pat Name: José Miguel Marquez Department: 104 Room: 2NE16 Gender: M House Decorator: BIANCA : 1940 Requested By: Omega Nayak Order Number: [id number] Reading MD: Kelvin Rhoades Measurements Intervals [place] Rate: 60 P: 16 IN: 226 QRS: -48 QRSD: 125 T: 5 QT: 403 QTc: 403 Interpretive Statements SINUS RHYTHM WITH FIRST DEGREE AV BLOCK MARKED LEFT AXIS DEVIATION LEFT VENTRICULAR HYPERTROPHY AND ST-T CHANGE Electronically Signed On 02-02-2017 16:09:57 EDT by Kelvin Rhoades
--- NOTE | 2017-02-02 17:50 | Carotid Imaging Report ---
Carotid Duplex Patient Name:José Miguel Marquez Order Number:[id number] Procedure Date:02/01/2017 Date:1940Age:77 yrs Gender:Male Location:[facility] Room #: 2NE16 Pain Management Physician:Ericka Stahl RVT Referring MD:Omega Nayak DO reinforcing bar setter:Josh Randolph DO Reading MD:Emmanuel Daly MD Risk Factors Yes/No Hypertension Yes Hypercholesterolemia Yes Impressions: The bilateral carotid arteries have minimal plaque throughout. Findings Carotid Duplex: Right: There is nonstenotic plaque in the right bifurcation. There is smooth heterogeneous plaque. Left: There is nonstenotic plaque in the left bifurcation. There is smooth heterogeneous plaque. There is nonstenotic plaque in the left proximal internal carotid artery. There is smooth heterogeneous plaque. There is nonstenotic plaque in the left mid internal carotid artery. There is smooth heterogeneous plaque. Prior Study: No prior study available for comparison. Carotid Results Right PSV EDV Assessment Proximal CCA 88 8 Normal Mid CCA 55 4 Normal Distal CCA 48 5 Normal Bifurcation 47 6 Non Stenotic Plaque Proximal ICA 91 21 Normal Mid ICA 69 13 Normal Distal ICA 60 15 Normal ECA 94 6 Normal Vertebral Artery 31 5 Antegrade Flow Left PSV EDV Assessment Proximal CCA 69 6 Normal Mid CCA 72 7 Normal Distal CCA 71 7 Normal Bifurcation 55 9 Non Stenotic Plaque Proximal ICA 70 15 Non Stenotic Plaque Mid ICA 90 18 Non Stenotic Plaque Distal ICA 81 18 Normal ECA 101 16 Normal Vertebral Artery 46 9 Antegrade Flow Ratio's Right ICA/CCA Ratio: 1.65 ICA/CCA Values: 91/55 Left ICA/CCA Ratio: 1.25 ICA/CCA Values: 90/72 Updated by Emmanuel Daly MD on 02/02/2017 5:45:19 PM electronically signed on 02/02/2017 5:45:41 PM with status of Final
[2017-02-02] MEDS ORDERED: Aspirin 325 MG TABLET PO SCH (18:00)
[2017-02-02] MEDS ORDERED: Metoprolol XL (24 HR) Succ 25 MG TAB.ER.24H PO SCH (18:00)
[2017-02-02] MEDS ORDERED: Ascorbic Acid 500 MG TABLET PO SCH (18:00)
[2017-02-02] MEDS ORDERED: (Omega-3/Dha/Epa/Fish Oil [Fish Oil 1,000 Mg Softgel]) PO SCH (18:00)
[2017-02-02] MEDS ORDERED: ZINC SULFATE 66 MG PO SCH (18:00)
[2017-02-02] MEDS ORDERED: VITAMIN A 8000 UNIT PO SCH (18:00)
[2017-02-03 05:05] LABS: Basophils % 0.8 %; Eosinophils # 0.2 K/mcL (0.0-0.6); Eosinophils % 4.2 %; Hematocrit 40.9 % (37.5-50.1); Hemoglobin 13.6 g/dL (12.9-16.9); Immature Granulocytes % 0.2 % (0-4); Lymphocytes # 1.7 K/mcL (0.6-4.6); Mean Corpuscular HGB Conc 33.3 g/dL (31.6-35.5); Mean Corpuscular Hemoglobin 31.7 pg (28.0-33.3); Mean Corpuscular Volume 95.3 fL (83.0-100.0); Mean Platelet Volume 10.8 fL (9.4-12.4); Monocytes # 0.8 K/mcL (0.0-1.3); Monocytes % 15.5 %; Neutrophils # 2.3 K/mcL (1.6-8.9); Platelet Count 143 K/mcL (140-400); Red Blood Count 4.29 M/mcL (4.19-5.50); Red Cell Distribution Width 14.6 % (11.5-14.5); Segmented Neutrophils % 45.3 %
[2017-02-03 06:57] LABS: Albumin 3.7 g/dL (3.5-5.0); Albumin/Globulin Ratio 1.2 (1.1-2.2); Alkaline Phosphatase 63 Units/L (38-126); Aspartate Amino Transferase 60 Units/L (5-34); BUN/Creatinine Ratio 11 (6-26); Bilirubin,Total 0.9 mg/dL (0.2-1.2); Blood Urea Nitrogen 12 mg/dL (8-26); Calcium 8.8 mg/dL (8.6-10.8); Carbon Dioxide 25 mEq/L (19-29); Chloride 106 mEq/L (98-109); Glucose 130 mg/dL (70-99); Osmolality,Calculated 288 (280-300); Potassium 3.9 mEq/L (3.5-4.5); Sodium 138 mEq/L (136-145); Total Protein 6.7 g/dL (6.0-8.3); eGFR For African Americans > 60 (> 60); eGFR For Non-African Americans > 60 (> 60)
[2017-02-03 07:16] LABS: Alanine Aminotransferase 53 Units/L (0-55)
[2017-02-03] MEDS: Aspirin Enteric Coated 81 MG Tablet PO SCH (12:24)
[2017-02-03] MEDS: Insulin LISPRO 300 UNITS/3 ML VIAL SQ SCH (12:24)
[2017-02-03] MEDS: Cholecalciferol (D-3) 1,000 UNIT TABLET PO SCH (12:25)
[2017-02-03] MEDS: Multivit/Ca/Min/Fe/FA 1 TAB TABLET PO SCH (12:25)
[2017-02-03] MEDS: Folic Acid 1 MG TABLET PO SCH (12:25)
[2017-02-03] MEDS: Loratadine 10 MG TABLET PO SCH (12:25)
[2017-02-03] MEDS: Ascorbic Acid 500 MG TABLET PO SCH (12:25)
[2017-02-03] MEDS: Vitamin B Complex/Vit C/Vit E 1 EACH TABLET PO SCH (12:25)
[2017-02-03] MEDS ORDERED: Tetracaine/Benzocaine/Butamben 200MG/SPRAY (100SPY/BOT) MM ONE (12:58)
[2017-02-03] MEDS ORDERED: 0.9 % Sodium Chloride 500 ML IVC ONE (12:58)
[2017-02-03] MEDS: *HR* Midazolam HCl 5 MG/5 ML VIAL IVP PRN ×2 (13:20→13:25)
[2017-02-03] MEDS: *HR* FentaNYL (PF) 100 MCG/2 ML VIAL IVP PRN ×2 (13:20→13:25)
--- NOTE | 2017-02-03 14:37 | Discharge Summary ---
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 Atorvastatin [Lipitor] 40 mg PO HS #60 tablet Clopidogrel [Plavix] 75 mg PO DAILY #60 tablet Meclizine [Antivert] 12.5 mg PO TID PRN #20 tablet PRN Reason: Vertigo Home Medications: Ascorbate Calcium [Vitamin C] 1,000 mg PO QPM 02/01/17 [History] Ascorbate Calcium [Vitamin C] 2,000 mg PO QAM 02/01/17 [History] Azelastine 0.1% Nasal [place] [Astelin] 1 spray NS QA 02/01/17 [History] Biotin 5,000 mcg PO QAM 02/01/17 [History] Calcium Citrate/Vitamin D3 [Calcium Citrate with D Tablet] 1 each PO QPM [History] Calcium Citrate/Vitamin D3 [Calcium Citrate with D Tablet] 2 each PO QAM [History] Cholecalciferol (Vitamin D3) [Vitamin D3] 10,000 unit PO QAM 02/01/17 [History] Garlic 1,000 mg PO QAM 02/01/17 [History] Glucosam Sul Na/Chondr Cifuentes A Na [Glucosamine-Chondroitin Tablet] 1 each PO QPM [History] Glucosam Sul Na/Chondr Cifuentes A Na [Glucosamine-Chondroitin Tablet] 2 each PO QAM [History] Loratadine [Claritin] 10 mg PO QAM 02/01/17 [History] Methotrexate [Otrexup] 15 mg PO QWEEK 02/01/17 [History] Metoprolol XL (24 HR) Succ [Toprol Xl] 25 mg PO QPM 02/01/17 [History] Multivitamin [One Daily Multivitamin] 1 each PO QAM 02/01/17 [History] Nitroglycerin [Nitrostat] 0.4 mg SL Q5M PRN 02/01/17 [History] [place]-3/Dha/Epa/Fish Oil [Fish Oil 1,000 mg Softgel] 1,000 mg PO QPM 02/01/17 [ History] [place]-3/Dha/Epa/Fish Oil [Fish Oil 1,000 mg Softgel] 2,000 mg PO QAM 02/01/17 [ History] Pantoprazole Sodium [Protonix] 40 mg PO QAM 02/01/17 [History] Potassium Gluconate [Potassium] 1,200 mg PO QAM 02/01/17 [History] Vitamin A 8,000 unit PO QPM 02/01/17 [History] Vitamin A 16,000 unit PO QAM 02/01/17 [History] Vitamin B Complex 2 each PO QAM 02/01/17 [History] Vitamin E (Dl,Tocopheryl Acet) [Vitamin E] 800 unit PO BID 02/01/17 [History] Zinc Sulfate [Zinc-15] 66 mg PO QPM 02/01/17 [History] metFORMIN [Glucophage] 1,000 mg PO QPM 02/01/17 [History] metFORMIN [Glucophage] 500 mg PO QAM 02/01/17 [History] Aspirin Enteric Coated [Aspirin EC] 81 mg PO DAILY #60 tablet. 02/03/17 [Rx] Atorvastatin [Lipitor] 40 mg PO HS #60 tablet 02/03/17 [Rx] Clopidogrel [Plavix] 75 mg PO DAILY #60 tablet 02/03/17 [Rx] Meclizine [Antivert] 12.5 mg PO TID PRN #20 tablet 02/03/17 [Rx] Allergies/Adverse Reactions: Allergies diphenhydramine [From Benadryl] Adverse Reaction (Verified 11/06/15 11:51) Anxiety NSAIDS (Non-Steroidal Anti-Inflamma Adverse Reaction (Verified 11/06/15 11:51) See Comments - Notes to Outpatient Provider 1. Consider outpatient Holter monitor vs Loop Recorder to evaluate for paroxysmal atrial fibrillation as the cause of his acute CVA 2. Patien to undergo Carotid doppler in 6 weeks prior to seeing Dr. Dinero to assess his left ICA aneurysm Date of admission: 02/03/17 08:01 Primary care physician: Ayesha Mathews Consults: Vascular surgery Discharging clinician: Anibal Boyer Anticipated date of discharge: 02/03/17 - Patient Status Disposition: Home, Self-Care Condition: Good Functional capacity at discharge: uses cane/walker Overall status at discharge: patient is progressing back to baseline - Discharge Instructions Follow Up With: Josh Randolph DO [Primary Care Provider] - 02/08/17 2:00 pm José Miguel Dinero MD [Partnered Physician] - (6 weeks) Forms: ED Satisfaction Letter - Diet and Activity Activity: increase activity as tolerated Diet: diabetic diet, low fat, low cholesterol, low salt diet Hospital course: Mr. Marquez is a 77 year old male who presented to the emergency room due to sudden onset dizziness which she describes as the room spinning sensation. Patient has a history of diabetes mellitus and hypertension. He was taking aspirin at the time. Patient was admitted to the hospital. He underwent an MRI which revealed an acute CVA in the left cerebellar hemisphere. CT angiogram of the head and neck revealed a saccular aneurysm in the left carotid artery. Vascular surgery was consulted to evaluate the patient. After ventilation with avascular surgery, they recommended that the patient be anticoagulated with aspirin and Plavix and follow up with vascular surgery in 6 weeks and obtain a repeat carotid ultrasound in 6 weeks. Patient was also evaluated by neurology for his acute CVA. Due to posterior circulation embolus , a LUIS was recommended by neurology to evaluate for possible intracardiac thrombus that could have caused his acute CVA. Hence, the patient underwent a LUIS which did not reveal any acute thrombus. The patient has been started on Plavix and statin. He was evaluated by physical therapy and not felt to require any special needs. He was also evaluated by occupational therapy and speech therapy. As the patient's symptoms are abating and he is feeling well and as his workup did not reveal any acute cirrhosis of embolism, he has been deemed stable to be discharged home. Neurology recommended that the patient might benefit from a Holter monitor/loop recorder after discharge if his LUIS is negative. - Time Spent with Patient Total time spent providing and/or coordinating discharge services: Greater than 30 minutes (40) - Constitutional Vitals: Temp Pulse Resp BP Pulse Ox 97.9 F 62 14 156/84 95 02/03/17 13:12 02/03/17 13:12 02/03/17 13:12 02/03/17 13:12 02/03/17 13:12 Exam: Gen.: Lying in bed. No acute distress. Chest: Clear to auscultation bilaterally. No adventitious sounds present. CVS: First and second heart sounds present. No murmurs, rubs or gallops. Skin: No decubitus ulcers appreciated.
[2017-02-03 15:26] VITALS: BP 162/91
== END 2017-02-03 18:45 | disposition home or self-care (01) | DRG 66 ==
LOC: 2NENU 11:19 → EMEROO 11:19 → SUATTDRO 17:55 → 2NENU 19:48
PROVIDERS: ADMIT Internal Medicine; ATTEND Internal Medicine Sleep Medicine